=== PATIENT | male | born 1980 | race Two or more races ===

== ENCOUNTER 2024-08-20 22:38 | Emergency (ER) | payer OTHER, SELFPAY ==
[2024-08-20 22:44] VITALS: BP 122/81; PULSE 70; RESP 16; TEMP 36.5; O2SAT 96; BMI 32.1
--- NOTE | 2024-08-20 23:08 | ED.NURSE ---
Blood Glucose 182
--- NOTE | 2024-08-20 23:13 | ED_ITS ---
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 He had this approximately 3 months ago, was able to milk some pus out of it. And improved. He does cut his nails very short. He has had no fevers or chills, denies any redness coming up his hand, he has been able to work as the but sure at [employer]. He does have a history of what sounds like diabetes, was given some metformin at [facility] in the past, use this but did not continue it. MD complaint: injury to: right Related Data Previous Rx's ?Medication ?Instructions ?Recorded metformin 500 mg tablet 500 mg PO QDAY #30 tabs 11/25/22 cephalexin 500 mg capsule 500 mg PO TID 7 days #21 caps 08/20/24 Allergies Allergy/AdvReac Type Severity Reaction Status Date / Time No Known Drug Allergies Allergy Verified 11/25/22 14:59 Review of Systems Status of ROS: Reports: 10 or more systems reviewed and unremarkable except as noted in History and below [facility] Social History Smoking Status: Never smoker Non-prescribed substance use: denies use service: No Exam Narrative: Exam Narrative: On examination of his right thumb he is sore around the ulnar side of his right thumb along the nail, there is some shiny area there consistent with a paronychia I. He has good IP flexion both and extension, cap refills normal little bit of tenderness on the pad, but there is no swelling when compared to his other 1. I see no area of pointing or nothing I can Asif. Glucometry shows sugar of 185. Const: Vital Signs, click to edit/add: Vital Signs - 24 hr 08/20/24 22:44 Temperature 97.7 F Pulse Rate [Left P ulse Oximeter] 70 Respiratory Rate 16 Blood Pressure [Ri ght Upper Arm] 122/81 Pulse Oximetry 96 Oxygen Delivery Me thod Room Air Documenting provider has reviewed patient's vital signs: yes Course Vital Signs Vital signs: Initial Vital Signs Temperature 97.7 F 08/20/24 22:44 Temperature Source Temporal Artery Scan 08/20/24 22:44 Pulse Rate 70 08/20/24 22:44 Pulse Rhythm Regular 08/20/24 22:44 Respiratory Rate 16 08/20/24 22:44 Blood Pressure 122/81 08/20/24 22:44 Blood Pressure Mean 94 08/20/24 22:44 Blood Pressure Position Sitting 08/20/24 22:44 Pulse Oximetry 96 08/20/24 22:44 Oxygen Delivery Method Room Air 08/20/24 22:44 Vital Signs Temperature 97.7 F 08/20/24 22:44 Pulse Rate 70 08/20/24 22:44 Respiratory Rate 16 08/20/24 22:44 Blood Pressure 122/81 08/20/24 22:44 Pulse Oximetry 96 08/20/24 22:44 Oxygen Delivery Method Room Air 08/20/24 22:44 Temperature 97.7 F 08/20/24 22:44 Pulse Rate 70 08/20/24 22:44 Respiratory Rate 16 08/20/24 22:44 Blood Pressure 122/81 08/20/24 22:44 Pulse Oximetry 96 08/20/24 22:44 Oxygen Delivery Method Room Air 08/20/24 22:44 Medications Administered Medications: Generic Name Dose Route Start Last Admin Trade Name Freq PRN Reason Stop Dose Admin Bacitracin Zinc 1 each 08/20/24 23:18 08/20/24 23:22 Bacitracin 0.9 Gm Packet TOPICAL 08/20/24 23:19 1 each ONCE ONE Administration MDM - Extremity Injury (Upper) MDM Narrative Medical decision making narrative: This is an paronychiae this is not a cellulitis, he has no abscess, is not drainable, he has no recent exposure in the hospital to suggest this could be Staph, 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 I do not think this is Orf for some other exposures such as cowpox. A combination of use of bacitracin twice a day, and also soaking 3 times a day along with the antibiotics hopefully will clear this up. I went over warning signs. Where he should come back and be seen. Medical Records Attestation: I reviewed the patient's medical records. Discharge Plan Discharge Clinical Impression: Paronychia, Diabetes Clinical Impression: (Ruled Out): Fracture of humerus Patient Disposition: Home w/ Parent or Adult Condition: Stable Instructions: Paronychia (ED), Diabetes and Your Skin (ED), Diabetes and Nutrition (ED), Diabetes and Exercise (ED) Additional Instructions: Home rest use of bacitracin on the thumb 3 times a day, warm water soaks are also very advantageous 3 times a day, putting her hand in warm water. Take the antibiotics as directed for 7 days, if increasing swelling, or every and some pus we can Asif this. But rate now there is no evidence that we can get anything out of there. Allow your nails to grow out also. Keflex 500 mg 3 times a day for the next 7 days. Via instymeds Follow-up with [facility], as you will need to go back on her metformin, you are at young man, in lots of complications are secondary to this if this is not controlled. Activity Level: Light activity Prescriptions: New cephalexin 500 mg capsule 500 mg PO TID 7 Days Qty: 21 0RF No Action metformin 500 mg tablet 500 mg PO QDAY Qty: 30 0RF Follow Up/Referrals: [facility] [Other] Stand Alone Forms: [employer] Info Instructions
[2024-08-20] MEDS: BACITRACIN 0.9 GM PACKET 1 EACH TOPICAL (23:22)
== END 2024-08-20 23:39 | disposition home or self-care (01) ==
LOC: ED 23:22
PROVIDERS: Emergency Provider Family Medicine
DX: L03.011 Cellulitis of right finger (principal); E11.9 Type 2 diabetes mellitus without complications
CPT/HCPCS: 82947; 99282; 99283; A9270